=== PATIENT | female | born 1985 | race Caucasian/White ===

== ENCOUNTER 2018-10-07 07:25 | Day surgery (SDC) | payer OTHER ==
[~2018-10-07 07:25] MED LIST: SEVOFLURANE 15 MIN
[2018-10-07] MEDS ORDERED: MIDAZOLAM 1 MG/ML 2 ML INJ (10:27)
[2018-10-07] MEDS ORDERED: FENTAnyl 50 MCG/ML VIAL IV (10:30)
[2018-10-07] MEDS ORDERED: DIPHENHYDRAMINE 50 MG INJ IV (10:30)
[2018-10-07] MEDS ORDERED: OXYCODONE/ACETAMINOPHEN (5/325) TAB PO (10:30)
[2018-10-07] MEDS ORDERED: HYDROmorphONE 1 MG/5 ML IV SYRINGE IV ×3 (10:30)
[2018-10-07] MEDS ORDERED: ONDANSETRON 4 MG INJ IV (10:30)
[2018-10-07] MEDS ORDERED: MEPERIDINE 25 MG INJ IV (10:30)
[2018-10-07] MEDS ORDERED: PROCHLORPERAZINE 10 MG INJ IV (10:30)
[2018-10-07] MEDS ORDERED: FENTAnyl 50 MCG/ML VIAL (10:42)
[2018-10-07] MEDS ORDERED: LIDOCAINE 2% (SDV) 5 ML INJ (10:42)
[2018-10-07] MEDS ORDERED: PROPOFOL 40 ML (10:42)
[2018-10-07] MEDS ORDERED: DEXAMETHASONE 4 MG/ML 5 ML INJ (10:50)
[2018-10-07] MEDS ORDERED: FAMOTIDINE 20 MG INJ (10:50)
[2018-10-07] MEDS ORDERED: ONDANSETRON 4 MG INJ (10:50)
[2018-10-07] MEDS: LIDOCAINE 1%/EPI (1:100,000) (MDV) 20 ML (11:26)
[2018-10-07] MEDS ORDERED: HYDROCODONE/APAP (7.5/325) TAB PO (12:30)
== END 2018-10-07 13:52 | disposition home or self-care (01) ==
LOC: SDS 07:25
DX: L91.0 Hypertrophic scar (principal); L90.5 Scar conditions and fibrosis of skin
CPT/HCPCS: 14060; 88304